=== PATIENT | male | born 1945 | race Caucasian/White ===

== ENCOUNTER 2016-08-06 21:57 | Inpatient (IN) | payer OTHER ==
[~2016-08-06] VITALS: Ht 190.5 cm; Wt 98.6 kg
[~2016-08-06 21:57] MED LIST: ADVAIR 250-501 EACH IH; ADVAIR 250/501 DISK IH; ASCORBIC ACID500 M3 PO; ASPIR-MOX 325325 MG PO; Advair 250/50 Diskus IH; B COMPLETE1 EACH PO; CEFTIN500 MG PO; CENTRUM COMPLE1 EACH PO; CINNAMON PLUS1 EACH PO; Cozaar PO; DOXYCYCLINE HY100 MG PO; DuoNeb IH; Ecotrin PO; FISH OIL 1,0001 EAC7 PO; FISH OIL CONC1 EACH PO; FLONASE16 G1 BOTH NARES; FUROSEMIDE20 MG PO; FUROSEMIDE40 MG PO; Fish Oil PO; Flonase BOTH NARES; GABAPENTIN300 MG PO; GINKGO BILOBA120 M1 PO; GUAIFENESIN WI120 M1 PO; Glucophage PO; HYDROCODON-ACE1 EAC7 PO; ITCH RELIEF15 G1 TP; KEFLEX500 MG PO; LASIX40 MG PO; LOSARTAN POTAS100 MG PO; Levaquin PO; MEN'S ONE DAIL1 EACH PO; METFORMIN HCL500 MG PO; MICARDIS40 MG PO; MOTRIN600 MG PO; NASAL SPRAY; NORCO 5/3251 TABLET PO; OXAYDO5 MG PO; PANTOPRAZOLE SO40 MG PO; PREDNISONE10 MG PO; PREDNISONE50 MG PO; PREVALITE POWD231 GM PO; PROAIR HFA8.5 GM IH; SINGULAIR10 MG PO; SPIRIVA1 INHALATI IH; STOOL SOFTENER100 MG PO; SYMBICORT60 INHALA1 IH; SYMBICORT60 INHALAT IH; Singulair PO; ULTRACET1 TABLET PO; ULTRAM50 MG PO; VALIUM2 MG PO; VICODIN 5-3001 EACH PO; VITAMIN B12-FO1 EACH PO; VITAMIN E1000 UNI1 PO; ZITHROMAX Z-PA250 MG PO; [UNRECOGNIZED DRUG - OTHER] PO; [UNRECOGNIZED DRUG - REMARK]
[2016-08-06 22:52] LABS: ADD MIUA? YES; BILIRUBIN NEGATIVE; BLOOD MODERATE; COLOR YELLOW ((YELLOW)); GLUCOSE (STRIP) NEGATIVE; KETONES NEGATIVE; LEUKOCYTES NEGATIVE; NITRITE NEGATIVE; PROTEIN (STRIP) 100; SPECIFIC GRAVITY 1.015 (1.000-1.030)
[2016-08-06 22:54] LABS: BASOPHIL COUNT 0.1 K/uL (0-0.1); EOSINOPHIL (%) 0.2 % (0-5); HEMATOCRIT 46.7 % (38.0-50.0); IMMATURE GRANULOCYTE (%) 0.3 % (0.0-0.7); IMMATURE GRANULOCYTE COUNT 0.3 K/uL; LYMPHOCYTE COUNT 1.6 K/uL (1.0-2.8); MCH 30.6 PG (29.0-34.0); MCHC 34.7 G/DL (30.0-36.0); MCV 88.3 FL (86-99); MEAN PLAT.VOLUME 8.8 uM^3 (9.0-12.4); MONOCYTE (%) 13.3 % (3-12); MONOCYTE COUNT 1.5 K/uL (0-0.8); NEUTROPHIL (%) 71.4 % (45-76); NEUTROPHIL COUNT 8.1 K/uL (1.8-6.4); PLATELET COUNT 168 K/uL (156-360); RBC DIS.WIDTH-CV 14.7 % (11.8-14.6); RBC DIS.WIDTH-SD 46.8 % (39-53); RED BLOOD COUNT 5.29 M/uL (4.00-5.50); WHITE BLOOD COUNT 11.4 K/uL (4.1-10.2)
[2016-08-06 22:56] LABS: BACTERIA NONE SEEN /HPF; EPITHELIAL CELLS RARE /HPF; MUCUS TRACE /LPF; UCUL ADDED? NO; WHITE BLOOD CELLS 0-5 /HPF (0-5)
[2016-08-06 23:02] LABS: CHLORIDE 103 mEq/L (99-109); SODIUM 138 mEq/L (136-147)
[2016-08-06 23:03] LABS: GLUCOSE 115 mg/dL (70-99)
[2016-08-06 23:05] LABS: ANION GAP 12 MEQ/L (2-14)
[2016-08-06 23:07] LABS: GFR ESTIMATE (CALCULATED) > 59 mL/min/
[2016-08-06 23:08] LABS: UREA NITROGEN (BUN) 18 mg/dL (9-23)
[2016-08-06 23:11] LABS: INFLUENZA A VIRAL ANTIGEN NEGATIVE; INFLUENZA B VIRAL ANTIGEN NEGATIVE
[2016-08-06 23:23] LABS: TOTAL BILIRUBIN 1.7 mg/dL (0.0-1.0)
[2016-08-06 23:24] LABS: ALKALINE PHOSPHATASE 110 IU/L (3-129)
[2016-08-06 23:27] LABS: DIRECT BILIRUBIN 0.8 mg/dL (0.0-0.3)
[2016-08-06 23:28] LABS: LIPASE 20 U/L (1.0-51.0)
[2016-08-07] MEDS ORDERED: TYLENOL EXTRA500 MG PO (00:32)
[2016-08-07 03:27] VITALS: BP 138/75
[2016-08-07 07:24] VITALS: BP 113/55
[2016-08-07 07:43] LABS: INTERNAL CONTROL VALID? YES
[2016-08-07 11:09] VITALS: BP 117/56
[2016-08-07 16:32] VITALS: BP 118/66
[2016-08-07 20:16] VITALS: BP 113/67
[2016-08-08] VITALS: BP 100/61
[2016-08-08 03:43] VITALS: BP 106/57
[2016-08-08 07:26] LABS: EOSINOPHIL (%) 1.1 % (0-5); EOSINOPHIL COUNT 0.1 K/uL (0-0.3); HEMATOCRIT 45.3 % (38.0-50.0); IMMATURE GRANULOCYTE (%) 0.4 % (0.0-0.7); LYMPHOCYTE COUNT 1.5 K/uL (1.0-2.8); MCH 31.6 PG (29.0-34.0); MCHC 34.4 G/DL (30.0-36.0); MCV 91.7 FL (86-99); MEAN PLAT.VOLUME 9.7 uM^3 (9.0-12.4); MONOCYTE (%) 12.3 % (3-12); MONOCYTE COUNT 0.9 K/uL (0-0.8); NEUTROPHIL (%) 66.6 % (45-76); NEUTROPHIL COUNT 5.1 K/uL (1.8-6.4); PLATELET COUNT 127 K/uL (156-360); RBC DIS.WIDTH-CV 14.4 % (11.8-14.6); RBC DIS.WIDTH-SD 48.4 % (39-53); RED BLOOD COUNT 4.94 M/uL (4.00-5.50)
[2016-08-08 07:28] LABS: WHITE BLOOD COUNT 7.6 K/uL (4.1-10.2)
[2016-08-08 07:30] VITALS: BP 109/66
[2016-08-08 07:47] LABS: ANION GAP 8 MEQ/L (2-14); CHLORIDE 101 MEQ/L (99-109); GFR ESTIMATE (CALCULATED) > 59 mL/min/; GLUCOSE 91 mg/dL (70-99); POTASSIUM 4.2 MEQ/L (3.7-5.4); SAMPLE HEMOLYSIS CHECK 0; SAMPLE ICTERIC CHECK 0; SAMPLE LIPEMIA CHECK 0; SODIUM 139 MEQ/L (136-147); UREA NITROGEN (BUN) 12 mg/dL (9-23)
[2016-08-08 11:05] VITALS: BP 112/68
[2016-08-08 15:03] VITALS: BP 115/66
[2016-08-08 19:18] VITALS: BP 119/66
[2016-08-08 21:38] LABS: POINT-OF-CARE METER ID UU14188625
[2016-08-09 00:04] VITALS: BP 127/68
[2016-08-09 03:46] VITALS: BP 120/67
[2016-08-09 07:03] LABS: HEMATOCRIT 44.5 % (38.0-50.0); MCH 29.7 PG (29.0-34.0); MCV 89.9 FL (86-99); MEAN PLAT.VOLUME 9.5 uM^3 (9.0-12.4); PLATELET COUNT 130 K/uL (156-360); RED BLOOD COUNT 4.95 M/uL (4.00-5.50); WHITE BLOOD COUNT 6.8 K/uL (4.1-10.2)
[2016-08-09 07:23] LABS: ANION GAP 7 MEQ/L (2-14); CHLORIDE 103 MEQ/L (99-109); GFR ESTIMATE (CALCULATED) > 59 mL/min/; GLUCOSE 95 mg/dL (70-99); POTASSIUM 4.1 MEQ/L (3.7-5.4); SAMPLE HEMOLYSIS CHECK 0; SAMPLE ICTERIC CHECK 0; SAMPLE LIPEMIA CHECK 0; SODIUM 141 MEQ/L (136-147); UREA NITROGEN (BUN) 13 mg/dL (9-23)
[2016-08-09 07:31] VITALS: BP 108/57
[2016-08-09 07:31] LABS: EOSINOPHIL (%) 0.9 % (0-5); EOSINOPHIL COUNT 0.1 K/uL (0-0.3); IMMATURE GRANULOCYTE (%) 0.1 % (0.0-0.7); LYMPHOCYTE COUNT 1.3 K/uL (1.0-2.8); MONOCYTE (%) 8.8 % (3-12); MONOCYTE COUNT 0.6 K/uL (0-0.8); NEUTROPHIL (%) 71.4 % (45-76); NEUTROPHIL COUNT 4.8 K/uL (1.8-6.4)
[2016-08-09 07:52] LABS: POINT-OF-CARE METER ID UU14188625
[2016-08-09 11:07] VITALS: BP 120/60
[2016-08-09 11:07] LABS: POINT-OF-CARE METER ID UU14188625
[2016-08-09 15:21] VITALS: BP 129/78
[2016-08-09 16:19] LABS: POINT-OF-CARE METER ID UU14174225
[2016-08-09 19:36] VITALS: BP 115/67
[2016-08-09 21:27] LABS: POINT-OF-CARE METER ID UU14174225
[2016-08-10] VITALS (7 sets, daily range): BP systolic 106–129; BP diastolic 56–80
[2016-08-10 12:49] LABS: POINT-OF-CARE METER ID UU14174225
[2016-08-11 04:29] VITALS: BP 100/55
[2016-08-11 07:40] VITALS: BP 113/71
[2016-08-11 11:20] VITALS: BP 120/75
[2016-08-11] MEDS ORDERED: PREDNISONE20 MG PO (12:42)
[2016-08-11] MEDS ORDERED: SPIRIVA RESPIMAT4 GM IH (12:42)
[2016-08-11] MEDS ORDERED: MYCOSTATIN 100,60 ML PO (12:42)
[2016-08-11] MEDS ORDERED: AMOX TR-K CLV1 EAC4 PO (12:42)
[2016-08-11 15:52] VITALS: BP 120/72
== END 2016-08-11 18:50 | disposition home health service (06) | DRG 871 ==
LOC: EME 21:57 → EXP 21:57 → EDOF 08-07 01:49 → 5SOUTH 08-07 01:49
PROVIDERS: Hospitalist; Internal Medicine; Student in an Organized Health Care Education/Training Program
DX: A41.9 Sepsis, unspecified organism (principal); J69.0 Pneumonitis due to inhalation of food and vomit; I81 Portal vein thrombosis; J96.11 Chronic respiratory failure with hypoxia; J18.9 Pneumonia, unspecified organism; I27.2 Other secondary pulmonary hypertension; K74.60 Unspecified cirrhosis of liver; E11.42 Type 2 diabetes mellitus with diabetic polyneuropathy; J44.1 Chronic obstructive pulmonary disease with (acute) exacerbation; Z99.81 Dependence on supplemental oxygen; G47.33 Obstructive sleep apnea (adult) (pediatric); I25.10 Atherosclerotic heart disease of native coronary artery without angina pectoris; R13.12 Dysphagia, oropharyngeal phase; I10 Essential (primary) hypertension; J44.0 Chronic obstructive pulmonary disease with (acute) lower respiratory infection; E78.5 Hyperlipidemia, unspecified; R16.1 Splenomegaly, not elsewhere classified; R91.1 Solitary pulmonary nodule; R13.19 Other dysphagia; G25.81 Restless legs syndrome; Z87.891 Personal history of nicotine dependence; I87.2 Venous insufficiency (chronic) (peripheral); M19.90 Unspecified osteoarthritis, unspecified site; R31.29 Other microscopic hematuria; K40.90 Unilateral inguinal hernia, without obstruction or gangrene, not specified as recurrent
CPT/HCPCS: 71010; 74177; 74230; 80048; 80076; 81003; 82948; 83605; 83690; 83880; 85025; 87040; 87070; 87205; 87449; 87502; 92507 GN; 92610 GN; 92611 GN; 93005; 94010; 94640; 94640 76; 94799; 99202; 99281; 99285; J0456; J1644; J1815; J2543; J3370; J7030; J7050; J7512

== ENCOUNTER 2016-10-16 03:15 | Observation (INO) | payer OTHER ==
[~2016-10-16] VITALS: Ht 190.5 cm; Wt 98.6 kg
[~2016-10-16 03:15] MED LIST changes: +AMOX TR-K CLV1 EAC4 PO; +MYCOSTATIN 100,60 ML PO; +PREDNISONE20 MG PO; +SPIRIVA RESPIMAT4 GM IH; +TYLENOL EXTRA500 MG PO
[2016-10-16 03:43] LABS: EOSINOPHIL (%) 1.4 % (0-5); EOSINOPHIL COUNT 0.1 K/uL (0-0.3); IMMATURE GRANULOCYTE (%) 0.2 % (0.0-0.7); INSTRUMENT ABS NEUTROPHIL CT 3.8 K/uL; LYMPHOCYTE COUNT 1.7 K/uL (1.0-2.8); MCH 29.6 PG (29.0-34.0); MCHC 33.1 G/DL (30.0-36.0); MCV 89.3 FL (86-99); MEAN PLAT.VOLUME 8.6 uM^3 (9.0-12.4); MONOCYTE (%) 9.9 % (3-12); MONOCYTE COUNT 0.6 K/uL (0-0.8); NEUTROPHIL (%) 61.3 % (45-76); NEUTROPHIL COUNT 3.8 K/uL (1.8-6.4); PLATELET COUNT 109 K/uL (156-360); RBC DIS.WIDTH-CV 14.6 % (11.8-14.6); RBC DIS.WIDTH-SD 47.9 % (39-53); RED BLOOD COUNT 5.82 M/uL (4.00-5.50); WHITE BLOOD COUNT 6.3 K/uL (4.1-10.2)
[2016-10-16 03:55] LABS: CHLORIDE 103 mEq/L (99-109); INTER. NORMALIZED RATIO 1.3; MAGNESIUM 1.6 mg/dL (1.3-2.7); POTASSIUM 3.7 mEq/L (3.7-5.4); PROTHROMBIN TIME 13.1 (9.2-11.2); PTT 35.5 (25-32); SODIUM 139 mEq/L (136-147)
[2016-10-16 03:56] LABS: GLUCOSE 106 mg/dL (70-99)
[2016-10-16 03:58] LABS: ANION GAP 11 MEQ/L (2-14)
[2016-10-16 04:00] LABS: GFR ESTIMATE (CALCULATED) > 59 mL/min/
[2016-10-16 04:01] LABS: UREA NITROGEN (BUN) 13 mg/dL (9-23)
[2016-10-16 04:04] LABS: TROP-I INTERPRETATION NEGATIVE; TROPONIN-I < 0.01 ng/mL (0.0-0.30)
[2016-10-16 04:17] LABS: BASE EXCESS 2.3 mEq/L (-3 to +3); BICARBONATE 27.9 mEq/L (22-26); CARBOXY HGB 1.6 % (0-5); PCO2 45 mm Hg (35-45); PO2 58 mm Hg (80-100)
[2016-10-16 04:18] LABS: COMMENTS - BLOOD GASES C+; DEVICE NC; O2 FLOW 3 L/MIN; SITE RR; TOTAL RESP RATE 28 resp/min
[2016-10-16 04:50] LABS: INFLUENZA A VIRAL ANTIGEN NEGATIVE; INFLUENZA B VIRAL ANTIGEN NEGATIVE
[2016-10-16] MEDS ORDERED: LOSARTAN POTAS100 MG PO (06:13)
[2016-10-16 07:01] LABS: HEMATOCRIT 50.7 % (38.0-50.0); MCH 29.8 PG (29.0-34.0); MCHC 33.1 G/DL (30.0-36.0); MCV 90.1 FL (86-99); PLATELET COUNT 95 K/uL (156-360); RBC DIS.WIDTH-CV 14.6 % (11.8-14.6); RBC DIS.WIDTH-SD 48.9 % (39-53); RED BLOOD COUNT 5.63 M/uL (4.00-5.50); WHITE BLOOD COUNT 5.2 K/uL (4.1-10.2)
[2016-10-16 07:26] LABS: ANION GAP 11 MEQ/L (2-14); CHLORIDE 101 MEQ/L (99-109); SAMPLE HEMOLYSIS CHECK 0; SAMPLE ICTERIC CHECK 0; SAMPLE LIPEMIA CHECK 0; SODIUM 138 MEQ/L (136-147); TOTAL BILIRUBIN 0.8 MG/DL (0.0-1.0)
[2016-10-16 07:31] LABS: ALKALINE PHOSPHATASE 92 IU/L (3-129); GFR ESTIMATE (CALCULATED) > 59 mL/min/; UREA NITROGEN (BUN) 14 mg/dL (9-23)
[2016-10-16 07:32] LABS: GLUCOSE 162 mg/dL (70-99)
[2016-10-16] MEDS ORDERED: MICARDIS40 MG PO (10:32)
[2016-10-16] MEDS ORDERED: LASIX20 MG PO (10:33)
[2016-10-16] MEDS ORDERED: PROVENTIL,2.5 MG/3 M IH (10:33)
[2016-10-16] MEDS ORDERED: DUONEB 2.5-0.5 M3 ML AEROSOL (10:34)
[2016-10-16] MEDS ORDERED: CLOPIDOGREL75 MG PO (16:11)
[2016-10-16 16:19] VITALS: BP 120/69
[2016-10-16 16:46] LABS: POINT-OF-CARE METER ID UU14149397
[2016-10-16 19:24] VITALS: BP 120/58
[2016-10-16 21:33] LABS: POINT-OF-CARE METER ID UU14149397
[2016-10-16 23:50] VITALS: BP 125/60
[2016-10-17 03:29] VITALS: BP 123/75
[2016-10-17 07:29] VITALS: BP 129/63
[2016-10-17 11:35] VITALS: BP 122/63
[2016-10-17] MEDS ORDERED: PREDNISONE10 M1 PO (15:29)
[2016-10-17 15:31] VITALS: BP 136/68
[2016-10-17] MEDS ORDERED: AZITHROMYCIN500 M1 PO (15:31)
[2016-10-17 16:17] LABS: POINT-OF-CARE METER ID UU14149397
== END 2016-10-17 18:19 | disposition home or self-care (01) ==
LOC: EME → EDBD 03:15 → EME 03:15 → EDOF 05:54 → 3EAST 15:32
PROVIDERS: Emergency Medicine; Hospitalist; Internal Medicine; Student in an Organized Health Care Education/Training Program
DX: J44.1 Chronic obstructive pulmonary disease with (acute) exacerbation (principal); J96.10 Chronic respiratory failure, unspecified whether with hypoxia or hypercapnia; R13.10 Dysphagia, unspecified; G47.33 Obstructive sleep apnea (adult) (pediatric); E78.00 Pure hypercholesterolemia, unspecified; E11.40 Type 2 diabetes mellitus with diabetic neuropathy, unspecified; E11.621 Type 2 diabetes mellitus with foot ulcer; M19.90 Unspecified osteoarthritis, unspecified site; J44.0 Chronic obstructive pulmonary disease with (acute) lower respiratory infection; J20.9 Acute bronchitis, unspecified; G89.29 Other chronic pain; J45.909 Unspecified asthma, uncomplicated; Z99.81 Dependence on supplemental oxygen; K21.9 Gastro-esophageal reflux disease without esophagitis; I10 Essential (primary) hypertension; I87.8 Other specified disorders of veins
CPT/HCPCS: 36600; 71010; 71275; 80048; 80053; 82803; 82948; 83605; 83735; 83880; 84132; 84484; 85025; 85027; 85610; 85730; 87040; 87070; 87205; 87502; 93005; 93970; 94640; 94640 76; 94644; 94667; 94760; 94799; 99202; 99281; 99285; G0378; J1100; J1650; J2930; J7030; J7644

== ENCOUNTER 2016-11-06 18:07 | Inpatient (IN) | payer OTHER ==
[~2016-11-06] VITALS: Ht 190.5 cm; Wt 101.8 kg
[~2016-11-06 18:07] MED LIST changes: +AZITHROMYCIN500 M1 PO; +CLOPIDOGREL75 MG PO; +DUONEB 2.5-0.5 M3 ML AEROSOL; +LASIX20 MG PO; +PREDNISONE10 M1 PO; +PROVENTIL,2.5 MG/3 M IH
[2016-11-06 18:38] LABS: EOSINOPHIL (%) 1.8 % (0-5); EOSINOPHIL COUNT 0.1 K/uL (0-0.3); HEMATOCRIT 48.3 % (38.0-50.0); IMMATURE GRANULOCYTE (%) 0.6 % (0.0-0.7); INSTRUMENT ABS NEUTROPHIL CT 4.7 K/uL; LYMPHOCYTE COUNT 1.7 K/uL (1.0-2.8); MCH 29.8 PG (29.0-34.0); MCHC 32.9 G/DL (30.0-36.0); MCV 90.4 FL (86-99); MEAN PLAT.VOLUME 8.7 uM^3 (9.0-12.4); MONOCYTE (%) 8.3 % (3-12); MONOCYTE COUNT 0.6 K/uL (0-0.8); NEUTROPHIL (%) 64.9 % (45-76); NEUTROPHIL COUNT 4.7 K/uL (1.8-6.4); PLATELET COUNT 134 K/uL (156-360); RBC DIS.WIDTH-CV 15.3 % (11.8-14.6); RBC DIS.WIDTH-SD 50.4 % (39-53); RED BLOOD COUNT 5.34 M/uL (4.00-5.50); WHITE BLOOD COUNT 7.2 K/uL (4.1-10.2)
[2016-11-06 18:46] LABS: CHLORIDE 104 mEq/L (99-109); MAGNESIUM 1.8 mg/dL (1.3-2.7); POTASSIUM 4.1 mEq/L (3.7-5.4); SODIUM 141 mEq/L (136-147)
[2016-11-06 18:48] LABS: GLUCOSE 86 mg/dL (70-99)
[2016-11-06 18:49] LABS: ANION GAP 9 MEQ/L (2-14)
[2016-11-06 18:51] LABS: GFR ESTIMATE (CALCULATED) > 59 mL/min/
[2016-11-06 18:52] LABS: UREA NITROGEN (BUN) 12 mg/dL (9-23)
[2016-11-06 18:58] LABS: TROP-I INTERPRETATION NEGATIVE; TROPONIN-I < 0.01 ng/mL (0.0-0.30)
[2016-11-06 19:31] LABS: INTER. NORMALIZED RATIO 1.2; PROTHROMBIN TIME 11.8 (9.2-11.2); PTT 32.2 (25-32)
[2016-11-06] MEDS ORDERED: SPIRIVA RESPIMAT4 GM IH (21:12)
[2016-11-06 23:10] LABS: TOTAL BILIRUBIN 0.7 mg/dL (0.0-1.0)
[2016-11-06 23:11] LABS: ALKALINE PHOSPHATASE 89 IU/L (3-129)
[2016-11-06 23:14] LABS: DIRECT BILIRUBIN 0.3 mg/dL (0.0-0.3)
[2016-11-06 23:48] LABS: SERUM ETHYL ALCOHOL < 10 mg/dL
[2016-11-07] VITALS (8 sets, daily range): BP systolic 113–140; BP diastolic 52–95
[2016-11-07 04:15] LABS: TROP-I INTERPRETATION NEGATIVE; TROPONIN-I < 0.01 ng/mL (0.0-0.30)
[2016-11-07 04:43] LABS: ADD MIUA? NO; BILIRUBIN NEGATIVE; BLOOD NEGATIVE; COLOR YELLOW ((YELLOW)); GLUCOSE (STRIP) NEGATIVE; KETONES NEGATIVE; LEUKOCYTES NEGATIVE; NITRITE NEGATIVE; PROTEIN (STRIP) 30; SPECIFIC GRAVITY 1.026 (1.000-1.030); UCUL ADDED? NO; UROBILINOGEN 0.2 MG/DL (0.2-1.0)
[2016-11-07 05:13] LABS: AMPHETAMINES QUANT VALUE 0 NG/ML; BARBITUATES QUANT VALUE 0 NG/ML; BENZODIAZEPINES QUANT VALUE 0 NG/ML; BENZODIAZEPINES, URINE SCREEN Negative (200 ng/mL); MARIJUANA QUANT VALUE 0 NG/ML; OPIATES QUANTITATIVE VALUE 0 NG/ML; PHENCYCLIDINE QUANT VALUE 0 NG/ML
[2016-11-07 08:12] LABS: POINT-OF-CARE METER ID UU13113831
[2016-11-07 11:04] LABS: TROP-I INTERPRETATION NEGATIVE; TROPONIN-I < 0.01 ng/mL (0.0-0.30)
[2016-11-07 11:05] LABS: Estimated Average Glucose 123 mg/dL (70-123); HEMOGLOBIN A1c (GLYCOHEMOGLOB) 5.9 % HGB (Below 5.7)
[2016-11-07 11:19] LABS: HDL CHOLESTEROL 36 MG/DL (Desirable>=40); LDL CHOLESTEROL 123 mg/dL (Desirable<100); NON-HDL CHOLESTEROL 149 mg/dL (Desirable<160); TOTAL CHOLESTEROL 185 mg/dL (Desirable<200); TRIGLYCERIDES 130 MG/DL (Normal: <150)
[2016-11-07 12:07] LABS: POINT-OF-CARE METER ID UU13113831
[2016-11-07 16:48] LABS: POINT-OF-CARE METER ID UU13113831
[2016-11-07 21:15] LABS: LIPASE 35 U/L (1.0-51.0)
[2016-11-07 21:28] LABS: EOSINOPHIL (%) 0.1 % (0-5); IMMATURE GRANULOCYTE (%) 0.6 % (0.0-0.7); IMMATURE GRANULOCYTE COUNT 0.1 K/uL; INSTRUMENT ABS NEUTROPHIL CT 14.1 K/uL; MCH 30.7 PG (29.0-34.0); MCHC 34.7 G/DL (30.0-36.0); MCV 88.5 FL (86-99); MEAN PLAT.VOLUME 8.8 uM^3 (9.0-12.4); MONOCYTE (%) 4.8 % (3-12); MONOCYTE COUNT 0.8 K/uL (0-0.8); NEUTROPHIL (%) 88.3 % (45-76); NEUTROPHIL COUNT 14.1 K/uL (1.8-6.4); PLATELET COUNT 160 K/uL (156-360); RBC DIS.WIDTH-CV 15.6 % (11.8-14.6); RBC DIS.WIDTH-SD 49.3 % (39-53); RED BLOOD COUNT 5.76 M/uL (4.00-5.50)
[2016-11-07 21:29] LABS: WHITE BLOOD COUNT 15.9 K/uL (4.1-10.2)
[2016-11-07 21:37] LABS: INTER. NORMALIZED RATIO 1.4; PROTHROMBIN TIME 13.9 (9.2-11.2); PTT 32.9 (25-32)
[2016-11-07 22:02] LABS: ANION GAP 10 MEQ/L (2-14); CHLORIDE 100 MEQ/L (99-109); POTASSIUM 4.3 MEQ/L (3.7-5.4); SAMPLE HEMOLYSIS CHECK 0; SAMPLE ICTERIC CHECK 0; SAMPLE LIPEMIA CHECK 0; SODIUM 136 MEQ/L (136-147); TOTAL BILIRUBIN 1.3 MG/DL (0.0-1.0)
[2016-11-07 22:08] LABS: ALKALINE PHOSPHATASE 86 IU/L (3-129); GFR ESTIMATE (CALCULATED) > 59 mL/min/; GLUCOSE 124 mg/dL (70-99); UREA NITROGEN (BUN) 14 mg/dL (9-23)
[2016-11-08 02:35] VITALS: BP 109/59
[2016-11-08 05:56] VITALS: BP 110/60
[2016-11-08 06:38] LABS: ALKALINE PHOSPHATASE 80 IU/L (3-129); ANION GAP 10 MEQ/L (2-14); CHLORIDE 102 MEQ/L (99-109); GFR ESTIMATE (CALCULATED) > 59 mL/min/; GLUCOSE 114 mg/dL (70-99); MAGNESIUM 1.8 mg/dl (1.3-2.7); POTASSIUM 4.2 MEQ/L (3.7-5.4); SAMPLE HEMOLYSIS CHECK 0; SAMPLE ICTERIC CHECK 0; SAMPLE LIPEMIA CHECK 0; SODIUM 139 MEQ/L (136-147); TOTAL BILIRUBIN 1.3 MG/DL (0.0-1.0); UREA NITROGEN (BUN) 16 mg/dL (9-23)
[2016-11-08 07:35] VITALS: BP 120/60
[2016-11-08 12:01] LABS: POINT-OF-CARE METER ID UU13113725
[2016-11-08 15:09] VITALS: BP 124/64
[2016-11-08 21:06] LABS: POINT-OF-CARE METER ID UU13113725
[2016-11-08 21:35] LABS: HEMATOCRIT 51.9 % (38.0-50.0); MCH 29.4 PG (29.0-34.0); MCHC 32.9 G/DL (30.0-36.0); MCV 89.2 FL (86-99); MEAN PLAT.VOLUME 8.4 uM^3 (9.0-12.4); PLATELET COUNT 145 K/uL (156-360); RBC DIS.WIDTH-CV 15.6 % (11.8-14.6); RBC DIS.WIDTH-SD 50.4 % (39-53); RED BLOOD COUNT 5.82 M/uL (4.00-5.50)
[2016-11-08 21:37] LABS: WHITE BLOOD COUNT 8.8 K/uL (4.1-10.2)
[2016-11-08 22:39] VITALS: BP 100/60
[2016-11-09 05:48] LABS: POINT-OF-CARE METER ID UU13113725
[2016-11-09 05:58] LABS: HEMATOCRIT 47.5 % (38.0-50.0); MCH 29.9 PG (29.0-34.0); MCHC 33.5 G/DL (30.0-36.0); MCV 89.5 FL (86-99); MEAN PLAT.VOLUME 8.9 uM^3 (9.0-12.4); PLATELET COUNT 155 K/uL (156-360); RBC DIS.WIDTH-CV 15.5 % (11.8-14.6); RBC DIS.WIDTH-SD 50.2 % (39-53); RED BLOOD COUNT 5.31 M/uL (4.00-5.50); WHITE BLOOD COUNT 7.2 K/uL (4.1-10.2)
[2016-11-09 07:15] VITALS: BP 106/68
[2016-11-09 07:15] LABS: ANION GAP 6 MEQ/L (2-14); CHLORIDE 101 MEQ/L (99-109); GFR ESTIMATE (CALCULATED) > 59 mL/min/; GLUCOSE 94 mg/dL (70-99); POTASSIUM 4.2 MEQ/L (3.7-5.4); SAMPLE HEMOLYSIS CHECK 0; SAMPLE ICTERIC CHECK 0; SAMPLE LIPEMIA CHECK 0; SODIUM 139 MEQ/L (136-147); UREA NITROGEN (BUN) 16 mg/dL (9-23)
[2016-11-09 11:10] VITALS: BP 109/71
[2016-11-09 12:29] LABS: POINT-OF-CARE METER ID UU13113725
[2016-11-09 14:55] VITALS: BP 103/72
[2016-11-09 19:06] VITALS: BP 107/64
[2016-11-09 22:50] VITALS: BP 116/63
[2016-11-09 22:51] VITALS: BP 110/55
[2016-11-10 03:54] VITALS: BP 111/65
[2016-11-10 07:07] VITALS: BP 101/64
[2016-11-10 07:53] LABS: HEMATOCRIT 46.8 % (38.0-50.0); MCHC 32.3 G/DL (30.0-36.0); MEAN PLAT.VOLUME 8.8 uM^3 (9.0-12.4); PLATELET COUNT 151 K/uL (156-360); RBC DIS.WIDTH-CV 15.1 % (11.8-14.6); RBC DIS.WIDTH-SD 50.2 % (39-53); WHITE BLOOD COUNT 5.1 K/uL (4.1-10.2)
[2016-11-10 08:22] LABS: ALKALINE PHOSPHATASE 70 IU/L (3-129); ANION GAP 9 MEQ/L (2-14); CHLORIDE 101 MEQ/L (99-109); GFR ESTIMATE (CALCULATED) > 59 mL/min/; GLUCOSE 80 mg/dL (70-99); POTASSIUM 4.2 MEQ/L (3.7-5.4); SAMPLE HEMOLYSIS CHECK 0; SAMPLE ICTERIC CHECK 0; SAMPLE LIPEMIA CHECK 0; SODIUM 138 MEQ/L (136-147); TOTAL BILIRUBIN 1.2 MG/DL (0.0-1.0); UREA NITROGEN (BUN) 18 mg/dL (9-23)
[2016-11-10 10:59] VITALS: BP 109/62
[2016-11-10 13:24] LABS: POINT-OF-CARE METER ID UU13113725
[2016-11-10 15:55] VITALS: BP 118/62
[2016-11-10 23:36] VITALS: BP 112/58
[2016-11-11 06:07] LABS: POINT-OF-CARE METER ID UU13113725
[2016-11-11 08:23] VITALS: BP 142/64
[2016-11-11 08:39] LABS: HEMATOCRIT 44.5 % (38.0-50.0); MCH 30.3 PG (29.0-34.0); MCHC 33.5 G/DL (30.0-36.0); MCV 90.4 FL (86-99); MEAN PLAT.VOLUME 8.6 uM^3 (9.0-12.4); PLATELET COUNT 130 K/uL (156-360); RBC DIS.WIDTH-CV 14.9 % (11.8-14.6); RBC DIS.WIDTH-SD 49.4 % (39-53); RED BLOOD COUNT 4.92 M/uL (4.00-5.50); WHITE BLOOD COUNT 4.5 K/uL (4.1-10.2)
[2016-11-11 09:07] LABS: ANION GAP 9 MEQ/L (2-14); CHLORIDE 100 MEQ/L (99-109); GFR ESTIMATE (CALCULATED) > 59 mL/min/; GLUCOSE 71 mg/dL (70-99); SAMPLE HEMOLYSIS CHECK 0; SAMPLE ICTERIC CHECK 0; SAMPLE LIPEMIA CHECK 0; SODIUM 138 MEQ/L (136-147); UREA NITROGEN (BUN) 15 mg/dL (9-23)
[2016-11-11 15:00] VITALS: BP 144/76
[2016-11-11 18:11] LABS: POINT-OF-CARE METER ID UU13113725
[2016-11-11 20:38] VITALS: BP 130/74
[2016-11-11 22:35] LABS: POINT-OF-CARE METER ID UU13113725
[2016-11-11 23:14] VITALS: BP 110/61
[2016-11-12 00:06] LABS: POINT-OF-CARE METER ID UU13113725
[2016-11-12 03:50] VITALS: BP 108/72
[2016-11-12 06:00] LABS: POINT-OF-CARE METER ID UU13113725
[2016-11-12 06:56] VITALS: BP 104/56
[2016-11-12 06:58] LABS: ANION GAP 7 MEQ/L (2-14); CHLORIDE 101 MEQ/L (99-109); GFR ESTIMATE (CALCULATED) > 59 mL/min/; POTASSIUM 3.7 MEQ/L (3.7-5.4); SAMPLE HEMOLYSIS CHECK 0; SAMPLE ICTERIC CHECK 0; SAMPLE LIPEMIA CHECK 0; SODIUM 140 MEQ/L (136-147); UREA NITROGEN (BUN) 11 mg/dL (9-23)
[2016-11-12 06:59] LABS: GLUCOSE 101 mg/dL (70-99)
[2016-11-12 10:40] VITALS: BP 114/73
[2016-11-12 12:29] LABS: POINT-OF-CARE METER ID UU13113725
[2016-11-12 12:49] LABS: INTER. NORMALIZED RATIO 1.2
[2016-11-12 15:33] VITALS: BP 112/68
[2016-11-12 18:39] LABS: POINT-OF-CARE METER ID UU13113725
[2016-11-12 19:39] VITALS: BP 117/64
[2016-11-12 23:33] VITALS: BP 117/61
[2016-11-12 23:53] LABS: POINT-OF-CARE METER ID UU13113725
[2016-11-13 03:57] VITALS: BP 98/65
[2016-11-13 04:45] VITALS: BP 116/68
[2016-11-13 05:54] LABS: POINT-OF-CARE METER ID UU13113725
[2016-11-13 06:27] LABS: HEMATOCRIT 44.6 % (38.0-50.0); MCH 29.3 PG (29.0-34.0); MCHC 32.5 G/DL (30.0-36.0); MCV 90.1 FL (86-99); MEAN PLAT.VOLUME 8.5 uM^3 (9.0-12.4); PLATELET COUNT 134 K/uL (156-360); RBC DIS.WIDTH-CV 14.8 % (11.8-14.6); RBC DIS.WIDTH-SD 48.9 % (39-53); RED BLOOD COUNT 4.95 M/uL (4.00-5.50); WHITE BLOOD COUNT 3.7 K/uL (4.1-10.2)
[2016-11-13 06:48] LABS: INTER. NORMALIZED RATIO 1.2; PROTHROMBIN TIME 12.3 (9.2-11.2)
[2016-11-13 07:06] VITALS: BP 129/64
[2016-11-13] MEDS ORDERED: LOVENOX100 MG/1 M SC (09:54)
[2016-11-13] MEDS ORDERED: COUMADIN5 MG PO (09:54)
[2016-11-13 11:25] LABS: POINT-OF-CARE METER ID UU13113725
[2016-11-13 11:47] VITALS: BP 123/78
== END 2016-11-13 14:43 | disposition home health service (06) | DRG 441 ==
LOC: EME 18:07 → EDOF 22:33 → 5WEST 11-07 00:14 → 5EAST 11-07 21:12
PROVIDERS: Emergency Medicine; Hospitalist; Internal Medicine; Internal Medicine Gastroenterology; Physician Assistant Medical
DX: I81 Portal vein thrombosis (principal); K55.059 Acute (reversible) ischemia of intestine, part and extent unspecified; K56.7 Ileus, unspecified; K70.31 Alcoholic cirrhosis of liver with ascites; F10.20 Alcohol dependence, uncomplicated; K76.6 Portal hypertension; J45.909 Unspecified asthma, uncomplicated; I10 Essential (primary) hypertension; K21.9 Gastro-esophageal reflux disease without esophagitis; J44.9 Chronic obstructive pulmonary disease, unspecified; I27.2 Other secondary pulmonary hypertension; J96.11 Chronic respiratory failure with hypoxia; G47.33 Obstructive sleep apnea (adult) (pediatric); E78.5 Hyperlipidemia, unspecified; G25.81 Restless legs syndrome; I87.2 Venous insufficiency (chronic) (peripheral); E11.621 Type 2 diabetes mellitus with foot ulcer; L97.511 Non-pressure chronic ulcer of other part of right foot limited to breakdown of skin; K27.9 Peptic ulcer, site unspecified, unspecified as acute or chronic, without hemorrhage or perforation; R13.10 Dysphagia, unspecified; E66.3 Overweight; I49.3 Ventricular premature depolarization; Z87.891 Personal history of nicotine dependence; Z99.81 Dependence on supplemental oxygen; Z68.28 Body mass index [BMI] 28.0-28.9, adult
CPT/HCPCS: 70450; 71010; 71275; 74000; 74020; 74174; 74176; 80048; 80053; 80061; 80076; 80306 90; 81003; 82948; 83036; 83605; 83690; 83735; 84484; 85025; 85027; 85610; 85730; 93005; 93306; 94640; 94640 76; 94660; 94760; 94799; 99202; 99281; 99284; G0378; G0480; J1650; J1815; J2270; J2405; J2543; J7030; J7042; J7050; J7120; S0028